=== PATIENT | female | born 1985 | race African-American/Black ===

== ENCOUNTER 2016-11-05 22:32 | Emergency (ER) | payer OTHER ==
[~2016-11-05] VITALS: Ht 172.7 cm; Wt 77.0 kg
[2016-11-05 22:38] VITALS: BP 142/50; PULSE 64; RESP 16; TEMP 98.9; O2SAT 100
[2016-11-05] MEDS ORDERED: FLUT1SPR5 EACH NARE (22:43)
[2016-11-05] MEDS ORDERED: TRAM50TA PO (22:43)
[2016-11-05] MEDS ORDERED: IBUP-232 PO (22:44)
[2016-11-05] MEDS ORDERED: VENTAER INH (22:49)
[2016-11-05] MEDS ORDERED: PROM25TA5 PO (22:50)
[2016-11-05] MEDS ORDERED: SODIUM CHLOR 0.9% 1000 ML INJ 1,000 ML IV SCH (23:05)
--- NOTE | 2016-11-05 23:08 | PD ---
HPI Chief Complaint: GI Complaint Time Seen by Provider: 22:59 Travel History International Travel<30 days: No Contact w/Intl Traveler<30days: No Traveled to known affect area: No History of Present Illness HPI 31yo F with no significant PMH presents to the ED with c/o NBNB vomiting and periumbilical pain since 3pm today. States she has been having nonbloody loose stools. Pt denies any fever, chest pain, sob, urinary complaints. Pt has had intractable vomiting before and had normal endoscopy and colonoscopy 2 years ago. PFSH Past Medical History Asthma: Yes Diminished Hearing: No Respiratory: Yes ?: Not LMP: now Past Surgical History Gynecologic Surgery: Yes (leep procedure) Social History Alcohol Use: Yes (occasional) Tobacco Use: Yes (occasional) Substance Use: No Allergies-Medications (Allergen,Severity, Reaction): Coded Allergies: Amoxicillin (Verified Allergy, Severe, 11/05/16) Reported Meds & Prescriptions Reported Meds & Active Scripts Active Acetaminophen Extra Strength (Acetaminophen) 500 Mg Tab 500 Mg PO Q6H PRN Zofran Odt (Ondansetron Odt) 4 Mg Tab 4 Mg SL Q8HR PRN Reported Phenergan (Promethazine HCl) 25 Mg Tab 25 Mg PO Q6H PRN Ventolin Hfa 18 GM Inh (Albuterol Sulfate) 90 Mcg/Act Aer 2 Puff INH Q6H PRN Ibuprofen 600 Mg Tab 600 Mg PO Q8HR PRN Flonase Nasal [place] (Fluticasone Nasal [place]) 50 Mcg/Act [place] 50 Mcg EACH NARE BID Tramadol (Tramadol HCl) 50 Mg Tab 50 Mg PO Q8H PRN Review of Systems Except as stated in HPI: all other systems reviewed are Neg Physical Exam Narrative GENERAL: 31yo F well appearing. SKIN: Warm and dry. HEAD: Atraumatic. Normocephalic. NECK: Trachea midline. No JVD. CARDIOVASCULAR: Regular rate and rhythm. No murmur appreciated. RESPIRATORY: No accessory muscle use. Clear to auscultation. Breath sounds equal bilaterally. GASTROINTESTINAL: Abdomen soft, nontender. nondistended. No rebound tenderness or guarding. BACK: No CVA tenderness bilaterally. MUSCULOSKELETAL: No obvious deformities. No clubbing. No cyanosis. No edema. NEUROLOGICAL: Awake and alert. No obvious cranial nerve deficits. Motor grossly within normal limits. Normal speech. PSYCHIATRIC: Appropriate mood and affect; insight and judgment normal. Data Data Last Documented VS Vital Signs Date Time Temp Pulse Resp B/P Pulse Ox O2 Delivery O2 Flow Rate FiO2 11/05/16 22:38 98.9 64 16 142/50 100 Orders Complete Blood Count With Diff (11/05/16 23:05) Comprehensive Metabolic Panel (11/05/16 23:05) Lipase (11/05/16 23:05) Urinalysis - C+S If Indicated (11/05/16 23:05) Ecg Monitoring (11/05/16 23:05) Sodium Chlor 0.9% 1000 Ml Inj (Ns 1000 M (11/05/16 23:05) Sodium Chloride 0.9% Flush (Ns Flush) (11/05/16 23:15) Al-Mag Hy-Si 40-40-4 Mg/Ml Liq (Mag-Al P (11/05/16 23:15) Lidocaine 2% Viscous (Xylocaine 2% Visco (11/05/16 23:15) Ed Urine Pregnancytest Poc (11/05/16 23:05) Labs Laboratory Tests Test 11/05/16 23:00 White Blood Count 10.2 TH/MM3 Red Blood Count 4.30 MIL/MM3 Hemoglobin 12.0 GM/DL Hematocrit 35.7 % Mean Corpuscular Volume 83.1 FL Mean Corpuscular Hemoglobin 28.0 PG Mean Corpuscular Hemoglobin 33.7 % Concent Red Cell Distribution Width 15.3 % Platelet Count 313 TH/MM3 Mean Platelet Volume 8.4 FL Neutrophils (%) (Auto) 77.1 % Lymphocytes (%) (Auto) 16.8 % Monocytes (%) (Auto) 3.9 % Eosinophils (%) (Auto) 1.6 % Basophils (%) (Auto) 0.6 % Neutrophils # (Auto) 7.9 TH/MM3 Lymphocytes # (Auto) 1.7 TH/MM3 Monocytes # (Auto) 0.4 TH/MM3 Eosinophils # (Auto) 0.2 TH/MM3 Basophils # (Auto) 0.1 TH/MM3 CBC Comment DIFF FINAL Differential Comment Sodium Level 140 MEQ/L Potassium Level 4.4 MEQ/L Chloride Level 108 MEQ/L Carbon Dioxide Level 24.3 MEQ/L Anion Gap 8 MEQ/L Blood Urea Nitrogen 9 MG/DL Creatinine 0.84 MG/DL Estimat Glomerular Filtration 94 ML/MIN Rate Random Glucose 95 MG/DL Calcium Level 8.9 MG/DL Total Bilirubin 0.4 MG/DL Aspartate Amino Transf 33 U/L (AST/SGOT) Alanine Aminotransferase 27 U/L (ALT/SGPT) Alkaline Phosphatase 54 U/L Total Protein 7.2 GM/DL Albumin 3.7 GM/DL Lipase 116 U/L [facility] Medical Decision Making Medical Screen Exam Complete: Yes Emergency Medical Condition: Yes Differential Diagnosis Gastroenteritis vs. pancreatitis vs. viral syndrome Narrative Course 31yo F with symptoms consistent with gastroenteritis here with vomiting and loose stool. Pt complained of periumbilical pain but really does not have any tenderness on exam. Labs reviewed, no leukocytosis. CMP unremarkable. Lipase normal. VS stable. Pt given zofran by EVAC. Pt given GI cocktail and reevaluated at bedside. Pt feels much better and tolerating PO now. Urine negative. Pt has no urinary complaints. Return precautions given. Diagnosis Primary Impression: Gastroenteritis Patient Instructions: General Instructions Departure Forms: Tests/Procedures Additional Instructions: Please follow up with your PMD in 3-7 days. Return to the ED if symptoms worsen. Med/Other Pt SpecificInfo: Prescription(s) given Scripts Acetaminophen (Acetaminophen Extra Strength)500 Mg [id number] Mg PO Q6H PRN (PAIN SCALE 1 TO 4) #20 TAB Ref 0 Prov:Do Kirk DO 11/06/16 Ondansetron Odt (Zofran Odt)4 Mg Tab4 Mg SL Q8HR PRN (Nausea/Vomiting) #7 TAB Ref 0 Prov:Do Kirk DO 11/06/16 Disposition: 01 DISCHARGE HOME Condition: Stable Do Kirk DO Nov 05, 2016 23:08
[2016-11-05] MEDS ORDERED: ALUMINUM/MAGNESIUM/SIMETH 30 ML CUP PO ONE (23:15)
[2016-11-05] MEDS ORDERED: LIDOCAINE VISCOUS 2% SOLN 15 ML UDC PO ONE (23:15)
[2016-11-05] MEDS ORDERED: SODIUM CHLORIDE 0.9% FLUSH 10 ML FLUSH IV FLUSH PRN (23:15)
[2016-11-05 23:34] LABS: AUTOMATED NEUTROPHIL # 7.9 TH/MM3 (1.8-7.7); BASOPHIL # 0.1 TH/MM3 (0-0.2); BASOPHIL % 0.6 % (0.0-2.0); EOSINOPHIL # 0.2 TH/MM3 (0-0.4); EOSINOPHIL % 1.6 % (0.0-4.0); HEMATOCRIT 35.7 % (35.0-46.0); HEMO FLAGS DIFF FINAL; LYMPH % 16.8 % (9.0-44.0); LYMPHOCYTE # 1.7 TH/MM3 (1.0-4.8); MEAN CELL VOLUME 83.1 FL (80.0-100.0); MEAN CORPUSCULAR HGB CONC 33.7 % (32.0-36.0); MONO % 3.9 % (0.0-8.0); NEUT % 77.1 % (16.0-70.0); PLATELET COUNT 313 TH/MM3 (150-450); RED CELL DISTRIBUTION WIDTH 15.3 % (11.6-17.2); WHITE BLOOD COUNT 10.2 TH/MM3 (4.0-11.0)
[2016-11-06 00:03] LABS: ALKALINE PHOSPHATASE 54 U/L (45-117); ALT (GPT) 27 U/L (10-53); TOTAL BILIRUBIN ADULT 0.4 MG/DL (0.2-1.0)
[2016-11-06 00:16] LABS: ANION GAP 8 MEQ/L (5-15); AST (GOT) 33 U/L (15-37); BICARBONATE 24.3 MEQ/L (21.0-32.0); BLOOD UREA NITROGEN 9 MG/DL (7-18); CHLORIDE 108 MEQ/L (98-107); GLOMERULAR FILTRATION RATE 94 ML/MIN (>89); SODIUM (NA) 140 MEQ/L (136-145)
[2016-11-06 00:17] LABS: POTASSIUM 4.4 MEQ/L (3.5-5.1)
[2016-11-06] MEDS ORDERED: ACET500T36 PO (00:47)
[2016-11-06] MEDS ORDERED: ZOFR4TAB3 SL (00:47)
== END 2016-11-06 02:03 | disposition home or self-care (01) ==
LOC: NEPA 22:32
DX: K52.9 Noninfective gastroenteritis and colitis, unspecified (principal)
CPT/HCPCS: 80053; 83690; 84703; 85025; 96360; 99283; J7030